=== PATIENT | female | born 1945 | race Caucasian/White ===

== ENCOUNTER 2016-04-03 12:14 | Emergency (ER) | payer MEDICARE, MEDICAID ==
[2016-04-03] MEDS ORDERED: OPTIRAY 350 100 ML VIAL HMH IV ONE (12:15)
[2016-04-03] MEDS ORDERED: ONDANSETRON 4 MG VIAL ONE (13:00)
[2016-04-03] MEDS ORDERED: METOCLOPRAMIDE 10 MG/2 ML VIAL ONE (13:53)
== END 2016-04-03 16:55 | disposition home or self-care (01) ==
LOC: ER 12:14
DX: K85.00 Idiopathic acute pancreatitis without necrosis or infection (principal); K52.9 Noninfective gastroenteritis and colitis, unspecified; R11.2 Nausea with vomiting, unspecified; F17.210 Nicotine dependence, cigarettes, uncomplicated; Z79.899 Other long term (current) drug therapy; K21.9 Gastro-esophageal reflux disease without esophagitis; J44.9 Chronic obstructive pulmonary disease, unspecified
CPT/HCPCS: 36415; 74177; 80053; 81001; 83630; 83690; 85025; 87088; 87493; 96374; 96375; 99285; J2405; Q9967